=== PATIENT | female | born 1995 | race Caucasian/White ===

== ENCOUNTER 2024-12-17 21:40 | Emergency (ER) | payer SELFPAY ==
--- NOTE | 2024-12-17 21:48 | ED_ITS ---
Discharge Plan Disposition Patient Disposition: Home, Self-Care Condition: Good Prescriptions Prescriptions: New methocarbamol 750 mg tablet 750 mg PO Q8H PRN (Reason: pain) Qty: 20 0RF ketorolac 10 mg tablet 10 mg PO Q8H PRN (Reason: pain) Qty: 12 0RF Referrals Follow up/Referrals: Provider,Referral, [Primary Care Provider, Medical] - See instructions Activity Restrictions/Add. Instructions Additional Instructions/Restrictions: You were evaluated in the emergency department today. At this time, your x-rays and urine are reassuring. Please follow-up closely with your primary care provider for reassessment. 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 Do not take Aleve or ibuprofen with Toradol, as it is also an NSAID. You may take Tylenol in addition to these medications every 4-6 hours as needed for pain. Clinical Impressions Clinical Impression: Acute pain of right hip Instructions Patient Instructions: DI for Acute Pain -- Adult, DI for Hip Pain Print Language Print Language: Mauritian Discharge ED Provider: Ladi Angeles General Adult HPI <Emilia Jones APRN - Last Filed: 12/17/24 21:57> General Chief complaint: PAIN Stated complaint: pain in leg and hip Time Seen by Provider: 12/17/24 21:48 History of Present Illness HPI narrative: patient is a 29-year-old female PMHx arthritis (managed with turmeric and Aleve) who presents to the ED for complaints of right hip pain that started few hours prior to arrival. Patient states that she gets random inflammation areas in her body which cause pain, she states that sometimes they last for several weeks. Related Data Previous Rx's ?Medication ?Instructions ?Recorded ketorolac 10 mg tablet 10 mg PO Q8H PRN pain #12 ta bs 12/17/24 methocarbamol 750 mg tablet 750 mg PO Q8H PRN pain #20 tabs 12/17/24 Allergies Allergy/AdvReac Type Severity Reaction Status Date / Time No Known Allergies Allergy Verified 12/17/24 22:10 PFSH <Emilia Jones APRN - Last Filed: 12/17/24 21:57> PFS Disclaimer: The information contained in this section may have been updated after the patient was seen, as this information can be updated by other users. Social History (Updated 12/17/24 @ 21:57 by Emilia Jones APRN) Smoking Status: Never smoker alcohol intake: never current occupational status: unemployed Travel in the last 8 weeks?: None Have you lived/traveled outside US in past 30 days?: No Contact w/someone who lives/traveled outside US past 30 days?: No Exposure to someone with infectious disease in past 14 days?: No Do you have a fever (greater than 100.4 F or 38 C)?: No Have you tested positive for COVID-19?: No Exposed to someone with COVID-19 in past 14 days?: No Do you have a sore throat?: No Do you have a cough?: No Do you have any weakness?: No Do you have any diarrhea?: No Are you experiencing any unusual bleeding?: No Do you have any muscle aches/pain?: No Do you have any abdominal pain?: No Are you experiencing loss of taste or smell?: No <Emilia Jones APRN - Last Filed: 12/17/24 21:57> ROS Obtained: Yes Systems reviewed as appropriate & no additional complaints except as documented Physical Exam <Emilia Jones APRN - Last Filed: 12/17/24 21:57> General General appearance: alert and in no apparent distress Head Head exam: atraumatic and normocephalic Eye Eye exam: Present normal appearance and PERRL ENT ENT exam: Present normal exam Neck Neck exam: Present normal inspection Chest Chest inspection: Present normal inspection and symmetric chest wall rise; Absent tenderness Respiratory Respiratory exam: Present normal lung sounds bilaterally Cardiovascular Cardiovascular exam: Present regular rate Abdominal Exam Abdominal exam: Present soft and normal bowel sounds; Absent tenderness Extremities Exam Extremities exam: Present normal inspection and full ROM Back Exam Back exam: Present normal inspection and full ROM Neurological Exam Neurological exam: Present alert and oriented X3 Psychiatric Psychiatric exam: Present normal affect and normal mood Skin Skin exam: Present warm and dry Medical Decision Making <Emilia Jones APRN - Last Filed: 12/17/24 21:57> Medical Records Screening: Per USPSTF and CDC recommendations, given the prevalence of disease in our region, it is our hospital?s policy to screen for HIV and viral Hepatitis for all patients aged 18 and over and those with ongoing risk factors. Matt Inquiry Pt receiving controlled substance: No Vital Signs: 12/17/24 21:49 12/17/24 22:06 12/17/24 22:31 Temperature 98.2 F Temperature Source Oral Pulse Rate 74 72 Pulse Rate [Right] 72 Respiratory Rate 18 14 18 Blood Pressure 132/78 104/68 L Blood Pressure [Right Arm] 118/40 L Blood Pressure Mean 91 80 Blood Pressure Mean [Right Arm] 66 Blood Pressure Source [Right Arm] Automatic Cuff Blood Pressure Position [Right Arm] Sitting 02 Sat by Pulse Oximetry 99 100 100 Oxygen Delivery Method Room Air Room Air Room Air Lab Data Lab Results 12/17/24 22:17: Urine Color Yellow, Urine Appearance Sl cloudy, Urine pH 7.5, Ur Specific [place] 1.020, Urine Protein Negative, Urine Glucose (UA) Negative, Urine Ketones Trace, Urine Blood 2+ A, Urine Nitrate Negative, Urine Bilirubin Negative, Urine Urobilinogen 1.0, Ur Leukocyte Esterase Negative, Urine RBC 5- 10, Urine WBC 5-10, Ur Squamous Epith Cells 20-50, Amorphous Sediment 2+, Urine Bacteria 4+, Urine HCG, Qual Negative Orders (Tests/Meds): ED MEDICATIONS Discontinued Medications Generic Name Dose Route Start Last Admin Trade Name Shonq PRN Reason Stop Dose Admin Acetaminophen 1,000 mg 12/17/24 21:51 12/17/24 22:35 Acetaminophen 500mg Tab PO 12/17/24 21:52 1,000 mg ONCE ONE Administration Ketorolac Tromethamine 15 mg 12/17/24 22:36 12/17/24 22:39 Ketorolac 30mg/Ml Vial IV 12/17/24 22:37 15 mg ONCE ONE Administration Lidocaine 1 each 12/17/24 22:36 12/17/24 22:38 Lidocaine 5% Transdermal Patch TD 12/17/24 22:37 1 each ONCE ONE Administration Methocarbamol 500 mg 12/17/24 22:36 12/17/24 22:39 Methocarbamol 500mg Tablet PO 12/17/24 22:37 500 mg ONCE ONE Administration ORDERS Category Date Time Status XR hip RT 2-3V w/pelvis Stat Exams 12/17/24 21:50 Completed Urinalysis and Microscopic Stat Lab 12/17/24 22:17 Completed Urine , HCG Qual. Stat Lab 12/17/24 22:17 Completed Urine Culture Stat Micro 12/17/24 22:17 Received Medical Decision Narrative: In summary, patient is a 29-year-old female PMHx arthritis (managed with turmeric and Aleve) who presents to the ED for complaints of right hip pain that started few hours prior to arrival. Patient states that she gets random i nflammation areas in her body which cause pain, she states that sometimes they last for several weeks. She states that normally at home she takes Aleve and that will relieve her pain however she has not had this today. Patient denies any recent injury, accidents or trauma to the area. Denies any previous surgery on her right hip. She states that the pain is worse when she is bearing weight. Patient states she does not currently have insurance so she has not established with a PCP. Denies IV drug use, denies vaping, denies alcohol. Denies fever, chills, body aches, headache, chest pain, shortness of breath, abdominal pain, nausea, vomiting, dysuria, back pain. Upon initial evaluation, patient is alert, oriented and cooperative. She is hemodynamically stable, afebrile. Upon physical exam, right hip is nontender, decreased ROM on exa due to pain. Pt laying on left side as she states that is the only thing that relieves her pain. Differential diagnosis include chronic pain, fracture, DDD, AVN, among others. Symptomatically managed with Toradol IM and acetaminophen. Care transferred to Dr. Angeles pending workup & dispo decision. <Ladi Angeles, DO - Last Filed: 12/17/24 23:09> Vital Signs: 12/17/24 21:49 12/17/24 22:06 12/17/24 22:31 Temperature 98.2 F Temperature Source Oral Pulse Rate 74 72 Pulse Rate [Right] 72 Respiratory Rate 18 14 18 Blood Pressure 132/78 104/68 L Blood Pressure [Right Arm] 118/40 L Blood Pressure Mean 91 80 Blood Pressure Mean [Right Arm] 66 Blood Pressure Source [Right Arm] Automatic Cuff Blood Pressure Position [Right Arm] Sitting 02 Sat by Pulse Oximetry 99 100 100 Oxygen Delivery Method Room Air Room Air Room Air Lab Data Lab Results 12/17/24 22:17: Urine Color Yellow, Urine Appearance Sl cloudy, Urine pH 7.5, Ur Specific [place] 1.020, Urine Protein Negative, Urine Glucose (UA) Negative, Urine Ketones Trace, Urine Blood 2+ A, Urine Nitrate Negative, Urine Bilirubin Negative, Urine Urobilinogen 1.0, Ur Leukocyte Esterase Negative, Urine RBC 5- 10, Urine WBC 5-10, Ur Squamous Epith Cells 20-50, Amorphous Sediment 2+, Urine Bacteria 4+, Urine HCG, Qual Negative Orders (Tests/Meds): ED MEDICATIONS Discontinued Medications Generic Name Dose Route Start Last Admin Trade Name Aubrey PRN Reason Stop Dose Admin Acetaminophen 1,000 mg 12/17/24 21:51 12/17/24 22:35 Acetaminophen 500mg Tab PO 12/17/24 21:52 1,000 mg ONCE ONE Administration Ketorolac Tromethamine 15 mg 12/17/24 22:36 12/17/24 22:39 Ketorolac 30mg/Ml Vial IV 12/17/24 22:37 15 mg ONCE ONE Administration Lidocaine 1 each 12/17/24 22:36 12/17/24 22:38 Lidocaine 5% Transdermal Patch TD 12/17/24 22:37 1 each ONCE ONE Administration Methocarbamol 500 mg 12/17/24 22:36 12/17/24 22:39 Methocarbamol 500mg Tablet PO 12/17/24 22:37 500 mg ONCE ONE Administration ORDERS Category Date Time Status XR hip RT 2-3V w/pelvis Stat Exams 12/17/24 21:50 Completed Urinalysis and Microscopic Stat Lab 12/17/24 22:17 Completed Urine , HCG Qual. Stat Lab 12/17/24 22:17 Completed Urine Culture Stat Micro 12/17/24 22:17 Received Medical Decision Narrative: In summary, patient is a 29-year-old female PMHx arthritis (managed with turmeric and Aleve) who presents to the ED for complaints of right hip pain that started few hours prior to arrival. Patient states that she gets random inflammation areas in her body which cause pain, she states that sometimes they last for several weeks. She states that normally at home she takes Aleve and that will relieve her pain however she has not had this today. Patient denies any recent injury, accidents or trauma to the area. Denies any previous surgery on her right hip. She states that the pain is worse when she is bearing weight. Patient states she does not currently have insurance so she has not established with a PCP. Denies IV drug use, denies vaping, denies alcohol. Denies fever, chills, body aches, headache, chest pain, shortness of breath, abdominal pain, nausea, vomiting, dysuria, back pain. Upon initial evaluation, patient is alert, oriented and cooperative. She is hemodynamically stable, afebrile. Upon physical exam, right hip is nontender, decreased ROM on exa due to pain. Pt laying on left side as she states that is the only thing that relieves her pain. Differential diagnosis include chronic pain, fracture, DDD, AVN, among others. Symptomatically managed with Toradol IM and acetaminophen. Care transferred to Dr. Angeles pending workup & dispo decision. DO Karthik: I was consulted by the STACY, and we discussed the complexity of the problems being addressed. I approved the treatment and management plan for this patient's care in the emergency department, thus performing a substantive portion of the medical decision making. On my assessment of the patient, she is lying in bed and states that she is feeling better without even receiving any interventions yet. She notes that she has issues like this in the past and flareups usually go away with turmeric and Aleve, but is not helping this time. She states that she gets flareups of inflammation that cause pain but she has not been able to see a primary care provider because of lack of insurance. No falls or injuries. No abdominal pain, nausea, vomiting, changes in bowel movements, fevers, chills, dysuria, urinary frequency, urinary urgency, or significant back pain. She does note she is currently on her period. Urinalysis demonstrates 2+ blood, consistent with her being on her period. Her urine is grossly contaminated with squamous cells and not overtly concerning for infection with negative nitrates and leukocyte esterase. She also has no UTI symptoms. She is neurologically intact in her lower extremities without concern for spinal cord compression or cauda equina syndrome. Patient was given oral Tylenol, IV Toradol, oral Robaxin, and topical Lidoderm patch her symptomatic improvement of pain. X-rays on my independent interpretation demonstrated no acute fracture. Please radiology read for final interpretation. Patient is feeling better and is able to walk. I feel she is appropriate for discharge home with prescriptions for Robaxin and Toradol and instructions for close follow-up with a PCP. Strict return precautions were given. Ladi Angeles DO Critical Care <Emilia Jones APRN - Last Filed: 12/17/24 21:57> Critical Care Time Critical Care Time: No
[2024-12-17 21:49] VITALS: BP 118/40; PULSE 72; RESP 18; TEMP 36.8; O2SAT 99; BMI 27.6
--- NOTE | 2024-12-17 21:50 | XR_ITS ---
PROCEDURE INFORMATION: Exam: XR Right Hip Exam date and time: 12/17/2024 10:38 PM Age: 29 years old Clinical indication: Hip pain; Right hip; Additional info: R hip pain TECHNIQUE: Imaging protocol: Radiologic exam of the right hip. Views: 2 or 3 views hip with pelvis when performed. COMPARISON: No relevant prior studies available. FINDINGS: Bones/joints: Unremarkable. No acute fracture. Soft tissues: Unremarkable. IMPRESSION: No acute findings.
[2024-12-17 22:06] VITALS: BP 132/78; PULSE 74; RESP 14; O2SAT 100
[2024-12-17 22:28] LABS: Appearance,Urine SL CLOUDY (Clear); Bilirubin,Urine Negative (Negative); Blood, Urine 2+ (Negative); Color,Urine YELLOW (Yellow); Glucose,Urine (UA) Negative (Negative); Ketones,Urine TRACE (Negative); Leukocyte Esterase,Urine Negative (Negative); Nitrate,Urine Negative (Negative); PH,Urine 7.5 (5.0-8.5); Protein,Urine Negative (Negative)
[2024-12-17 22:29] LABS: Microscopic, Urine URINE MICROSCOPIC (MICROSCOPIC)
[2024-12-17 22:31] VITALS: BP 104/68; PULSE 72; RESP 18; O2SAT 100
[2024-12-17 22:31] LABS: Urine Pregnancy, HCG Qual. Negative (Negative)
[2024-12-17] MEDS: ACETAMINOPHEN 500MG TAB 1000 MG PO (22:35)
[2024-12-17] MEDS: LIDOCAINE 5% TRANSDERMAL PATCH 1 EACH TD (22:38)
[2024-12-17] MEDS: METHOCARBAMOL 500MG TABLET 500 MG PO (22:39)
[2024-12-17] MEDS: KETOROLAC 30MG/ML VIAL 15 MG IV (22:39)
[2024-12-17 22:42] LABS: Amorphous Sediment,Urine 2+ /lpf; Bacteria,Urine 4+ /lpf; Squamous Epithelial Cell,Urine 20-50 #/hpf (0-5)
--- NOTE | 2024-12-17 23:07 | PC.NURSE ---
Pt ambulated with assistance, states her pain is better. Dr Angeles sending her prescriptions including muscle relaxer and Toradol. Educated pt not to take NSAIDS with Toradol.
[2024-12-17 23:09] VITALS: BP 130/74; PULSE 74; RESP 16; TEMP 36.6; O2SAT 100
== END 2024-12-17 23:21 | disposition home or self-care (01) ==
PROVIDERS: Nurse Practitioner; Emergency Provider Emergency Medicine
DX: M25.551 Pain in right hip (principal)
CPT/HCPCS: 73502; 81001; 81025; 87086; 96374; 99284; J1885

== ENCOUNTER 2025-01-16 16:21 | Emergency (ER) | payer SELFPAY ==
[2025-01-16 16:22] VITALS: BP 135/83; PULSE 58; RESP 16; TEMP 37.2; O2SAT 100; BMI 29.6
--- NOTE | 2025-01-16 17:28 | HMH.EDGENADL ---
Discharge Plan Disposition Patient Disposition: Home, Self-Care Condition: Good Prescriptions Prescriptions: New prednisone 50 mg tablet 50 mg PO DAILY 5 Days Qty: 5 0RF No Action methocarbamol 750 mg tablet 750 mg PO Q8H PRN (Reason: pain) Qty: 20 0RF ketorolac 10 mg tablet 10 mg PO Q8H PRN (Reason: pain) Qty: 12 0RF Referrals Follow up/Referrals: Nas Singh DO [Staff Physician, Family Practice] - See instructions ProviderGriffin MD [Primary Care Provider, Medical] - See instructions Hussain Robles MD [Staff Physician, Family Practice] - See instructions Activity Restrictions/Add. Instructions Additional Instructions/Restrictions: As we discussed I am referring you to a primary care doctor and have given you 2 names to call. 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 I have also sent in prednisone to your pharmacy. Please take it as directed until your medication is gone. If you have any persistent new or worsening signs or symptoms you may return to the ER as needed. Clinical Impressions Clinical Impression: Arthralgia Qualifiers: Joint pain location: wrist Laterality: left Qualified Code(s): M25.532 - Pain in left wrist Stand Alone Forms Stand Alone Forms: Work/School Release Print Language Print Language: Macedonian Discharge ED Provider: Dez Pride General Adult HPI General Chief complaint: PAIN Stated complaint: Left hand swollen Time Seen by Provider: 01/16/25 17:16 Mode of Arrival: Ambulatory Source of Information: Patient Description of Symptoms (Recalled from ER Triage Doc. by RN): PT REPORTS LEFT WRIST PAIN THAT RADIATES TO ELBOW. PT REPORTS FREQUENT EPISODES OF JOINT PAIN SIMILAR TO THIS. History of Present Illness HPI narrative: Patient presents for evaluation of left arm pain. Patient states that she woke up at 5 AM 2 days ago with pain at her left hand/wrist. She denies any trauma or injury. She has had problems with this for several years but has not actually been fully evaluated for this. It is never the same location as she has had hip shoulder and now hand pain currently. Previously she had it in her pelvic joints. She denies any fever chills hemoptysis hematochezia melena loss of motor or sensory but just reports that it is painful. She has no known past medical history and is on no home medications currently. Related Data Previous Rx's ?Medication ?Instructions ?Recorded ketorolac 10 mg tablet 10 mg PO Q8H PRN pain #12 tabs 12/17/24 methocarbamol 750 mg tablet 750 mg PO Q8H PRN pain #20 tabs 12/17/24 prednisone 50 mg tablet 50 mg PO DAILY 5 days #5 tabs 01/16/25 Allergies Allergy/AdvReac Type Severity Reaction Status Date / Time No Known Allergies Allergy Verified 12/17/24 22:10 [facility] Disclaimer: The information contained in this section may have been updated after the patient was seen, as this information can be updated by other users. Social History (Updated 12/17/24 @ 21:57 by Emilia Jones APRN) Smoking Status: Current every day smoker alcohol intake: never current occupational status: unemployed Travel in the last 8 weeks?: None Have you lived/traveled outside US in past 30 days?: No Contact w/someone who lives/traveled outside US past 30 days?: No Exposure to someone with infectious disease in past 14 days?: No Do you have a fever (greater than 100.4 F or 38 C)?: No Have you tested positive for COVID-19?: No Exposed to someone with COVID-19 in past 14 days?: No Do you have a sore throat?: No Do you have a cough?: No Do you have any weakness?: No Do you have any diarrhea?: No Are you experiencing any unusual bleeding?: No Do you have any muscle aches/pain?: No Do you have any abdominal pain?: No Are you experiencing loss of taste or smell?: No ROS Obtained: Yes Systems reviewed as appropriate & no additional complaints except as documented Physical Exam General General appearance: alert and in no apparent distress Respiratory Respiratory exam: Present normal lung sounds bilaterally Cardiovascular Cardiovascular exam: Present regular rate Neurological Exam Neurological exam: Present alert and oriented X3 Medical Decision Making Medical Records Medical records reviewed: Yes I reviewed the patient's medical records. Screening: Per USPSTF and CDC recommendations, given the prevalence of disease in our region, it is our hospital?s policy to screen for HIV and viral Hepatitis for all patients aged 18 and over and those with ongoing risk factors. Matt Inquiry Pt receiving controlled substance: No Vital Signs: 01/16/25 16:22 01/16/25 18:29 01/16/25 19:05 Temperature 98.9 F 98.9 F Temperature Source Oral Oral Pulse Rate 74 80 Pulse Rate [Radial] 58 L Respiratory Rate 16 16 Blood Pressure 126/83 128/72 Blood Pressure [Right Arm] 135/83 Blood Pressure Mean [Right Arm] 100 Blood Pressure Source Automatic Cuff Automatic Cuff Blood Pressure Source [Right Arm] Automatic Cuff Blood Pressure Position Sitting Sitting Blood Pressure Position [Right Arm] Sitting 02 Sat by Pulse Oximetry 100 100 Oxygen Delivery Method Room Air Room Air Room Air Lab Data Lab results reviewed: Yes I reviewed the patient's lab results. Lab Results 01/16/25 17:54: WBC 9.4, RBC 4.68, Hgb 13.7, Hct 40.7, MCV 87.0, MCH 29.3, MCHC 33.7, RDW 12.5, Plt Count 312, MPV 9.3, Neut % (Auto) 69.3, Lymph % (Auto) 22.3, [place] % (Auto) 6.7, Eos % (Auto) 0.8, Baso % (Auto) 0.6, Neut # (Auto) 6.5, Lymph # (Auto) 2.1, [place] # (Auto) 0.6, Eos # (Auto) 0.1, Baso # (Auto) 0.1, ESR 20, Sodium 134 L, Potassium 3.6, Chloride 99, Carbon Dioxide 28, Anion Gap 10.6, BUN 6 L, Creatinine 0.60, Estimated Creat Clear 180, Estimated GFR 120, Est GFR ( Amer) 145, Glucose 99, Calcium 9.5, Phosphorus 3.4, Magnesium 1.7, Total Bilirubin 1.2, AST 21, ALT 12, Alkaline Phosphatase 72, Total Creatine Kinase 72, C-Reactive Protein 12.5 H, Total Protein 7.5, Albumin 4.6, Globulin 2.9, Albumin/Globulin Ratio 1.6 01/16/25 17:54 01/16/25 17:54 Orders (Tests/Meds): ED MEDICATIONS Discontinued Medications Generic Name Dose Route Start Last Admin Trade Name Freq PRN Reason Stop Dose Admin Dexamethasone Sodium Phosphate 10 mg 01/16/25 17:46 01/16/25 18:02 Dexamethasone 4mg/Ml 5ml Mdv IV 01/16/25 17:47 10 mg ONCE ONE Administration Ketorolac Tromethamine 15 mg 01/16/25 17:46 01/16/25 18:02 Ketorolac 30mg/Ml Vial IV 01/16/25 17:47 15 mg ONCE ONE Administration ORDERS Category Date Time Status Wrist XR left minimum 3 views [XR wrist LT min 3V] Stat Exams 01/16/25 18:25 Completed CBC w/Auto Diff [Complete Blood Count Auto Diff] Stat Lab 01/16/25 17:54 Completed CK [Creatine Kinase] Stat Lab 01/16/25 17:54 Completed CMP [Comprehensive Metabolic Panel] Stat Lab 01/16/25 17:54 Completed CRP [C-Reactive Protein] Stat Lab 01/16/25 17:54 Completed ESR [Erythrocyte Sedimentation Rate] Stat Lab 01/16/25 17:54 Completed Magnesium Stat Lab 01/16/25 17:54 Completed Phosphorous Stat Lab 01/16/25 17:54 Completed Medical Decision Narrative: In summary patient is a 29-year-old female who presents to the emergency department for evaluation of left hand and wrist pain and swelling. Patient is hemodynamically stable upon arrival, afebrile. Physical exam is remarkable for visible edema on the dorsum of her left hand and to her wrist. There is not however any erythema warmth loss of motor or sensory and she is neurovascularly intact distally to the fingertips. There is no bony deformity.. Differential diagnosis includes arthritis versus soft tissue injury versus inflammatory disorder. Initial workup will be conducted with hematologic labs and plain film x-ray. Initial interventions include Tylenol Toradol Decadron. Initial workup reviewed by me shows that her hematologic labs are significant for elevated CRP and sed rate but the remainder of her hematologic labs are normal and nonactionable. My informed interpretation of her imaging shows no acute bony abnormality.. Upon repeat evaluation patient reported significant improvement after initial intervention. Given this patient is appropriate for discharge with referral to a PCP which she does not currently have with recommendations that she likely needs further workup with rheumatology. Patient given strict return precautions. Critical Care Critical Care Time Critical Care Time: No
[2025-01-16] MEDS: DEXAMETHASONE 4MG/ML 5ML MDV 10 MG IV (18:02)
[2025-01-16] MEDS: KETOROLAC 30MG/ML VIAL 15 MG IV (18:02)
[2025-01-16 18:03] LABS: Hematocrit 40.7 % (37.0-47.0); Hemoglobin 13.7 g/dL (12.2-16.2); Immature Granulocytes % 0.3 %; Mean Corpuscular HGB Conc 33.7 g/dL (31.8-35.4); Mean Corpuscular Hemoglobin 29.3 pg (27.0-31.2); Mean Corpuscular Volume 87.0 fl (81-99); Nucleated Red Blood Cells % 0 %; Platelet Count 312 K/mm3 (142-424); Red Blood Count 4.68 M/mm3 (4.20-5.40); Red Cell Distribution Width-SD 40.0 fL; White Blood Count 9.4 K/mm3 (4.8-10.8)
[2025-01-16 18:15] LABS: Albumin Level 4.6 g/dl (3.5-5.0); Chloride 99 mmol/L (98-107); Potassium 3.6 mmoL/L (3.5-5.1); Sodium 134 mmol/L (136-145)
[2025-01-16 18:17] LABS: Alanine Aminotransferase 12 U/L (12-78); Albumin/Globulin Ratio 1.6 (1.1-1.8); Anion Gap 10.6 mEq/L (5-15); Aspartate Amino Transferase 21 U/L (14-36); Blood Urea Nitrogen 6 mg/dl (7-17); Carbon Dioxide 28 mmol/L (22.0-30.0); Creatinine Clearance Estimated 180 mL/min (50-200); Creatinine,Serum 0.60 mg/dl (0.52-1.04); Estimated Glomerular Filt Rate 120 ml/min (>60); GFR (African American) 145 ML/MIN (>60); Globulin 2.9 g/dL (1.3-3.2); Total Protein,Serum 7.5 g/dl (6.3-8.2)
[2025-01-16 18:18] LABS: Alkaline Phosphatase 72 U/L (38-126); Bilirubin,Total 1.2 mg/dl (0.2-1.3); Calcium 9.5 mg/dl (8.4-10.2); Creatine Kinase 72 U/L (30-135); Glucose 99 mg/dl (74-100); Magnesium 1.7 mg/dl (1.6-2.3); Phosphorous 3.4 mg/dl (2.5-4.5)
[2025-01-16 18:24] LABS: C-Reactive Protein 12.5 mg/L (0-4)
--- NOTE | 2025-01-16 18:25 | XR_ITS ---
PROCEDURE INFORMATION: Exam: XR Left Wrist Exam date and time: 01/16/2025 6:21 PM Age: 29 years old Clinical indication: Swelling; Wrist; Left; Additional info: Atraumatic swelling TECHNIQUE: Imaging protocol: Radiologic exam of the left wrist. Views: 3 or more views. COMPARISON: No relevant prior studies available. FINDINGS: Bones/joints: Normal. No acute fracture identified. Soft tissues: Normal. IMPRESSION: No acute findings.
[2025-01-16 18:29] VITALS: BP 126/83; PULSE 74; O2SAT 100
--- NOTE | 2025-01-16 18:31 | PC.NURSE ---
pt to rad
[2025-01-16 19:05] VITALS: BP 128/72; PULSE 80; RESP 16; TEMP 37.2; O2SAT 99
== END 2025-01-16 19:05 | disposition home or self-care (01) ==
PROVIDERS: Physician Assistant; Emergency Provider Emergency Medicine
DX: M25.50 Pain in unspecified joint (principal)
CPT/HCPCS: 73110; 80053; 82550; 83735; 84100; 85025; 85651; 86140; 96374; 96375; 99284; J1100; J1885

== ENCOUNTER 2025-02-12 16:33 | Emergency (ER) | payer SELFPAY ==
[2025-02-12 16:46] VITALS: BP 132/66; PULSE 66; RESP 18; TEMP 37.1; O2SAT 97; BMI 27.9
--- NOTE | 2025-02-12 16:52 | XR_ITS ---
PROCEDURE INFORMATION: Exam: XR Right Foot Exam date and time: 02/12/2025 5:14 PM Age: 29 years old Clinical indication: Pain; Foot; Right; Additional info: Right ankle injury, stepped in a hole yesterday, numbness TECHNIQUE: Imaging protocol: Radiologic exam of the right foot. Views: 3 or more views. Total images: 3 COMPARISON: No relevant prior studies available. FINDINGS: Bones/joints: No acute fracture or joint dislocation. No concerning bone lesions or calcifications. Unremarkable joint spaces. Soft tissues: Unremarkable soft tissues. IMPRESSION: Negative right foot.
--- NOTE | 2025-02-12 16:52 | XR_ITS ---
PROCEDURE INFORMATION: Exam: XR Right Ankle Exam date and time: 02/12/2025 5:16 PM Age: 29 years old Clinical indication: Pain; Ankle; Right; Additional info: Right ankle injury, stepped in a hole yesterday, numbness TECHNIQUE: Imaging protocol: Radiologic exam of the right ankle. Views: 3 or more views. Total images: 3 COMPARISON: CR XR FOOT RT MIN 3V 02/12/2025 5:14 PM FINDINGS: Bones/joints: No acute fracture, joint dislocation, or joint effusion. The ankle mortise is maintained. Age-appropriate joint spaces. Benign sclerotic bone island distal tibia. Soft tissues: Mild soft tissue swelling. IMPRESSION: 1. No acute osseous abnormality. 2. Mild soft tissue swelling.
--- NOTE | 2025-02-12 16:56 | ED_ITS ---
Discharge Plan Disposition Patient Disposition: Home, Self-Care Prescriptions Prescriptions: No Action methocarbamol 750 mg tablet 750 mg PO Q8H PRN (Reason: pain) Qty: 20 0RF ketorolac 10 mg tablet 10 mg PO Q8H PRN (Reason: pain) Qty: 12 0RF prednisone 50 mg tablet 50 mg PO DAILY 5 Days Qty: 5 0RF Referrals Follow up/Referrals: Provider,Referral, MD [Primary Care Provider, Medical] - See instructions Activity Restrictions/Add. Instructions Additional Instructions/Restrictions: Take 1000 mg of Tylenol and 600 mg ibuprofen every 6 hours for pain. Keep an Aircast for the next 2 weeks and use crutches when ambulating. After 2 weeks perform gentle stretches to increase range of motion and follow-up with primary care provider soon as possible for reevaluation. Return to the emergency department for new or worsening symptoms. Clinical Impressions Clinical Impression: Ankle sprain and strain Instructions Patient Instructions: Sprain Print Language Print Language: Salvadorean Discharge ED Provider: Radha Soriano General Adult HPI General Chief complaint: Extremity Injury, Lower Stated complaint: AO 02/11/25 1800 injury right ankle Time Seen by Provider: 02/12/25 16:56 Mode of Arrival: Ambulatory Source of Information: Patient Description of Symptoms (Recalled from ER Triage Doc. by RN): Pt states she was trying [place] run away from [place] horse [place] the [place] and tripped in a hole. Pt felt her right ankle pop. Pt states she is unable to bear weight on her foot. Swelling noted. Pt has strong pulse and brisk cap refill History of Present Illness HPI narrative: Patient is a 29-year-old with no stomach and past medical history presents to the emergency department with right ankle pain. Patient was running and felt her ankle pop when she tripped in a hole yesterday. Unable to bear weight on her right ankle since. Patient has had swelling of the right ankle since. Minimal improvement with elevating the ankle. Related Data Previous Rx's ?Medication ?Instructions ?Recorded ketorolac 10 mg tablet 10 mg PO Q8H PRN pain #12 ta bs 12/17/24 methocarbamol 750 mg tablet 750 mg PO Q8H PRN pain #20 tabs 12/17/24 prednisone 50 mg tablet 50 mg PO DAILY 5 days #5 tab s 01/16/25 Allergies Allergy/AdvReac Type Severity Reaction Status Date / Time No Known Allergies Allergy Verified 12/17/24 22:10 [facility] Disclaimer: The information contained in this section may have been updated after the patient was seen, as this information can be updated by other users. Social History (Updated 12/17/24 @ 21:57 by Emilia Jones APRN) Smoking Status: Current every day smoker alcohol intake: never current occupational status: unemployed Travel in the last 8 weeks?: None Have you lived/traveled outside [place] in past 30 days?: No Contact w/someone who lives/traveled outside [place] past 30 days?: No Exposure to someone with infectious disease in past 14 days?: No Do you have a fever (greater than 100.4 F or 38 C)?: No Have you tested positive for COVID-19?: No Exposed to someone with COVID-19 in past 14 days?: No Do you have a sore throat?: No Do you have a cough?: No Do you have any weakness?: No Do you have any diarrhea?: No Are you experiencing any unusual bleeding?: No Do you have any muscle aches/pain?: No Do you have any abdominal pain?: No Are you experiencing loss of taste or smell?: No ROS Obtained: Yes All systems reviewed & no additional complaints except as documented Physical Exam General General appearance: alert Head Head exam: atraumatic Eye Eye exam: Present normal appearance ENT ENT exam: Present normal exam Neck Neck exam: Absent tenderness Chest Chest inspection: Present normal inspection Respiratory Respiratory exam: Absent respiratory distress Cardiovascular Cardiovascular exam: Present regular rate and normal rhythm Abdominal Exam Abdominal exam: Present soft; Absent tenderness Extremities Exam Extremities exam: Present full ROM (Decreased range of motion of the right ankle active, intact passive range of motion), tenderness (Tenderness at the right ATFL, no tenderness at the medial or lateral malleolus or base of fifth metatarsal.), joint swelling (Right ankle) and other (Neurovascularly intact right distal extremity) Neurological Exam Neurological exam: Present alert and oriented X3 Skin Skin exam: Present warm and dry Medical Decision Making Medical Records Screening: Per USPSTF and CDC recommendations, given the prevalence of disease in our region, it is our hospital?s policy to screen for HIV and viral Hepatitis for all patients aged 18 and over and those with ongoing risk factors. Matt Inquiry Pt receiving controlled substance: No Vital Signs: 02/12/25 16:46 Temperature 98.7 F Temperature Source Temporal Artery Scan Pulse Rate [Right] 66 Respiratory Rate 18 Blood Pressure [Right Arm] 132/66 Blood Pressure Mean [Right Arm] 88 Blood Pressure Source [Right Arm] Automatic Cuff Blood Pressure Position [Right Arm] Sitting 02 Sat by Pulse Oximetry 97 Oxygen Delivery Method Room Air Orders (Tests/Meds): ORDERS Category Date Time Status Foot XR right minimum 3 views [XR foot RT min 3V] Stat Exams 02/12/25 16:52 Taken XR ankle RT min 3V Stat Exams 02/12/25 16:52 Taken Medical Decision Narrative: In summary, this 29-year-old female presents to the emergency department today with right ankle pain. On initial evaluation patient is hemodynamically stable saturating appropriately on room air afebrile no acute. Differential diagnosis includes but is not limited to acute fracture dislocation neurovascular injury ligamentous injury. Based on these concerns, I ordered right ankle and right foot x-ray. XR personally interpreted demonstrates no acute fracture or dislocation. History and exam most consistent with ankle sprain. Patient placed in Aircast instructed to not bear weight for the next 2 weeks and RICE. With follow-up with PCP. On reassessment patient is ambulatory with crutches amenable to discharge with outpatient follow-up with primary care provider. Of note, social determinants of health include limited access to primary care Critical Care Critical Care Time Critical Care Time: No
[2025-02-12 18:28] VITALS: BP 120/78; PULSE 65; RESP 18; TEMP 36.6; O2SAT 98
== END 2025-02-12 18:28 | disposition home or self-care (01) ==
PROVIDERS: Emergency Provider Student in an Organized Health Care Education/Training Program
DX: S93.401A Sprain of unspecified ligament of right ankle, initial encounter (principal); W17.2XXA Fall into hole, initial encounter
CPT/HCPCS: 73610; 73630; 99283